=== PATIENT | male | born 2000 | race Caucasian/White ===

== ENCOUNTER 2022-10-28 00:52 | Emergency (ER) | payer OTHER ==
[~2022-10-28] VITALS: Ht 177.8 cm; Wt 80.9 kg
[2022-10-28 01:12] VITALS: BP 113/74; TEMP 98.2
[2022-10-28] MEDS ORDERED: ADDERALL XR15 MG PO (01:16)
[2022-10-28 04:36] VITALS: PULSE 70
== END 2022-10-28 04:38 | disposition home or self-care (01) ==
LOC: COL.ER 00:52
DX: S41.111A Laceration without foreign body of right upper arm, initial encounter (principal); W26.8XXA Contact with other sharp object(s), not elsewhere classified, initial encounter